=== PATIENT | female | born 1995 | race Two or more races ===

== ENCOUNTER 2020-09-12 22:44 | Emergency (ER) | payer OTHER ==
[~2020-09-12] VITALS: Ht 154.9 cm; Wt 65.8 kg
[2020-09-13] MEDS ORDERED: ACETAMINOPHEN650 M2 PO (03:21)
== END 2020-09-13 03:30 | disposition home or self-care (01) ==
LOC: ER 22:44
DX: N39.0 Urinary tract infection, site not specified (principal); M54.5 Low back pain

== ENCOUNTER 2020-11-13 02:09 | Emergency (ER) | payer OTHER ==
[~2020-11-13] VITALS: Ht 154.9 cm; Wt 68.0 kg
[~2020-11-13 02:09] MED LIST: ACETAMINOPHEN650 M2 PO
== END 2020-11-13 05:34 | disposition home or self-care (01) ==
LOC: ER 02:09
DX: O26.892 Other specified pregnancy related conditions, second trimester (principal); R10.2 Pelvic and perineal pain; Z34.02 Encounter for supervision of normal first pregnancy, second trimester

== ENCOUNTER 2020-12-16 18:30 | Inpatient (IN) | payer OTHER ==
[2021-01-19] MEDS ORDERED: RHOGAM ULTR1500 UNIT IM (07:15)
== END 2021-02-16 15:11 | disposition home or self-care (01) | DRG 832 ==
LOC: LDR 18:30 → OB/GYN 12-19 08:22
PROVIDERS: ADMIT Obstetrics & Gynecology; ATTEND Obstetrics & Gynecology
PROC: 4A1HXFZ Monitoring of Products of Conception, Cardiac Rhythm, External Approach (ICD-10-PCS; principal; 2020-12-16)
PROC: BY4CZZZ Ultrasonography of Second Trimester, Single Fetus (ICD-10-PCS; 2021-01-06)
PROC: BY4FZZZ Ultrasonography of Third Trimester, Single Fetus (ICD-10-PCS; 2021-02-03)
DX: O60.02 Preterm labor without delivery, second trimester (principal); O26.872 Cervical shortening, second trimester; Z3A.24 24 weeks gestation of pregnancy; Z37.0 Single live birth

== ENCOUNTER 2021-03-09 09:02 | Inpatient (IN) | payer OTHER ==
[~2021-03-09] VITALS: Ht 157.5 cm; Wt 69.4 kg
[~2021-03-09 09:02] MED LIST changes: +RHOGAM ULTR1500 UNIT IM
[2021-03-09] MEDS ORDERED: PRENATAL CAPLE1 EAC1 PO (09:18)
== END 2021-03-11 16:57 | disposition home or self-care (01) | DRG 805 ==
LOC: LDR 09:02 → OB/GYN 14:12
PROVIDERS: ADMIT Obstetrics & Gynecology; ATTEND Obstetrics & Gynecology
PROC: 10E0XZZ Delivery of Products of Conception, External Approach (ICD-10-PCS; principal; 2021-03-09)
PROC: 0KQM0ZZ Repair Perineum Muscle, Open Approach (ICD-10-PCS; 2021-03-09)
PROC: 4A1HXFZ Monitoring of Products of Conception, Cardiac Rhythm, External Approach (ICD-10-PCS; 2021-03-09)
DX: O60.14X0 Preterm labor third trimester with preterm delivery third trimester, not applicable or unspecified (principal); O34.33 Maternal care for cervical incompetence, third trimester; Z37.0 Single live birth; O70.1 Second degree perineal laceration during delivery; Z3A.35 35 weeks gestation of pregnancy